=== PATIENT | male | born 1990 | race Caucasian/White ===

== ENCOUNTER → 2024-12-03 | Outpatient (CLI) | payer OTHER, SELFPAY ==
--- NOTE | 2024-12-03 | XR_ITS ---
Examination: PA lateral chest 2 views TECHNIQUE: Upright PA lateral chest 2 views Exam date and time: December 03, 1999 2546 hours INDICATIONS: Coughing beginning 4 days ago. FINDINGS: Pectus excavatum deformity accentuates left ventricle No lobar pneumonia No pulmonary edema Mild osteopenia IMPRESSION: No pneumonia identified
== END | disposition home or self-care (01) ==
PROVIDERS: PCP Nurse Practitioner Family; Referring Provider Nurse Practitioner Family; Visit Provider Nurse Practitioner Family
DX: R07.9 Chest pain, unspecified (principal); R05.9 Cough, unspecified
CPT/HCPCS: 71046

== ENCOUNTER → 2025-02-04 | Outpatient (BNVA) | payer OTHER, SELFPAY | END | disposition home or self-care (01) | PROVIDERS: PCP Pediatrics; Referring Provider Pediatrics; Visit Provider Urology | DX: N40.0 Benign prostatic hyperplasia without lower urinary tract symptoms (principal); N48.1 Balanitis | CPT/HCPCS: 81003; 99212; G0463 ==

== ENCOUNTER → 2025-07-06 | Outpatient (BNVA) | payer OTHER, SELFPAY | END | disposition home or self-care (01) | PROVIDERS: PCP Pediatrics; Referring Provider Pediatrics; Visit Provider Urology | DX: N40.0 Benign prostatic hyperplasia without lower urinary tract symptoms (principal); N47.8 Other disorders of prepuce | CPT/HCPCS: 81003; 99212; G0463 ==

== ENCOUNTER 2025-09-29 20:41 | Emergency (ER) | payer OTHER, SELFPAY ==
[2025-09-29 20:43] VITALS: BMI 21.5
[2025-09-29 22:00] VITALS: BP 136/77; PULSE 56; RESP 16; TEMP 36.8; O2SAT 95
--- NOTE | 2025-09-29 22:21 | PD.EDNEURO ---
Neuro Symptoms Deficit-RME/HPI General Chief Complaint: Neuro Symptoms/Deficit Stated Complaint: LEFT FACIAL DROOP, SLURRED SPEECH 3-4 DAYS Time Seen by Provider: 09/29/25 22:14 Arrival date/time: 09/29/25 20:41 35M with no significant PMH presents to ED with several days of R-sided facial droops and some slurred speech. Patient denies dizziness, vision changes, AMS, and abnormal walking/behavior. Mom with patient confirms baseline behavior/gait. Limitations: no limitations Related Data Previous Rx's ?Medication ?Instructions ?Recorded prednisone 50 mg tablet 50 mg PO QDAY 10 days #10 tabs 09/29/25 valacyclovir 1 gram tablet 1,000 mg PO TID 10 days #30 tabs 09/29/25 Allergies Allergy/AdvReac Type Severity Reaction Status Date / Time No Known Allergies Allergy Verified 09/29/25 20:43 Review of Systems Review of Systems Systems Reviewed: All systems reviewed, normal except as documented ENT Ears, Nose, Mouth, and Throat: Reports as per HPI and Reports other (facial droop) Past Medical History Social History SMOKING STATUS: Never smoker ED Exam General Limitations: Present no limitations General appearance: Present alert and in no apparent distress Head Head exam: Present atraumatic and other (R facial droop) Eye Eye exam: Present normal appearance, PERRL and EOMI Neck Neck exam: Present normal inspection, full ROM and trachea midline Chest Chest inspection: Present normal inspection and symmetric chest wall rise Neurological Exam Neurological exam: Present alert, oriented X3 and CN II-XII intact Psychiatric Psychiatric exam: Present normal affect and normal mood Skin Skin exam: Present warm, dry, intact and normal color Course Quality Measures none Orders Category Date Time Status predniSONE Med 09/29/25 22:17 Discontinued 80 mg PO X1 ONE Vital Signs Vital signs: Vital Signs Temperature 98.3 F 09/29/25 22:00 Pulse Rate 56 L 09/29/25 22:00 Respiratory Rate 16 09/29/25 22:00 Blood Pressure 136/77 H 09/29/25 22:00 Pulse Oximetry (%) 95 09/29/25 22:00 Oxygen Delivery Method Room Air 09/29/25 22:00 O2 at 95% on RA and WNLs Neuro Symptoms / Deficit MDM Narrative MDM Narrative:: 35M with no significant PMH presents to ED with several days of R-sided facial droops and some slurred speech. Patient denies dizziness, vision changes, AMS, and abnormal walking/behavior. Mom with patient confirms baseline behavior/gait. Physical exam reveals R-sided facial droop including not able to close R eye. Forehead is also involved. Otherwise grossly intact CN II-XII. Strength equal bilaterally. Speech normal besides mild slurring caused by facial droop. Gait normal. Patient is afebrile, calm, and alert. Meds and correctional counselor given. Patient data External records reviewed:: [facility] previous records Clinical information provided by:: patient Social determinants that could affect healthcare access:: none Patient has the following chronic illnesses:: none How is presenting disease/condition affected by chronic disease/condition?: no chronic disease Evaluation data The following diagnostics were reviewed and interpreted by me:: other (specify) (none) Lab and/or radiology exams considered but not ordered:: not ordered Interpretation Summary: n/a Medications / Prescriptions Medications or Prescriptions considered but not ordered:: ordered Medication administrations:: Medication Administration History Discontinued Medications Prednisone (Prednisone 20 Mg Tablet) 80 mg PO X1 ONE Stop: 09/29/25 22:18 above Consultations Consultation(s) initiated? (list below): No Diagnosis Neuro Differential Diagnosis: carpal tunnel syndrome, convulsions, delirium, subarachnoid hemorrhage, peripheral neuropathy, cerebrovascular accident, multiple sclerosis, transient cerebral ischemia and other (Robbins's palsy) Most likely diagnosis given after review of the tests above:: Robbins's palsy Admission Indicated Admission indicated?: not indicated Admission Request Was there a request for admission?: No Disposition Plan Disposition Plan: Discharge Discharge Attestation Discharge Attestation: The patient and all family members were given an opportunity to ask questions and understood the discharge instructions. Discharge instructions specifically effects, indications for sooner follow up or return to the emergency department, and the expected course of current diagnosis. Patient condition: Stable Discharge Plan Plan Patient Disposition: HOME (Self Care) Discharge Disposition comment: Stable Prescriptions/Referrals Prescriptions/Med Rec: New valacyclovir 1 gram tablet 1,000 mg PO TID 10 Days Qty: 30 0RF prednisone 50 mg tablet 50 mg PO QDAY 10 Days Qty: 10 0RF Problem List Clinical Impression: Robbins's palsy Patient/Caregiver Discharge Instructions Education Materials: ED Robbins's Palsy Additional Instructions: Please follow-up with PCP within 24-48 hours and return immediately if symptoms worsen. Keep R eye taped shut at night. Use OTC hydrating eye drops. Print Language: Luxembourgish Stand Alone Forms: Patient Portal Info Letter CLEOPATRA/FRANKLIN Supervising Physician CLEOPATRA/FRANKLIN Supervising Physician: Dr. Bautista
== END 2025-09-29 22:46 | disposition home or self-care (01) ==
LOC: SERX 22:33
PROVIDERS: Emergency Provider Emergency Medicine
DX: G51.0 Bell's palsy (principal)
CPT/HCPCS: 99281; J7512